=== PATIENT | male | born 1975 ===

== ENCOUNTER 2021-03-10 08:20 | Outpatient (CLI) | payer OTHER ==
--- NOTE | 2021-03-10 15:11 | XRAY Report ---
PROCEDURE: Elbow 3 View LT INDICATIONS: LEFT ELBOW PAIN TECHNIQUE: 3 views of the elbow were acquired. COMPARISON: None. FINDINGS: Bones: There is a nondisplaced fracture of the radial head. No dislocations. No suspicious bony les ions. Soft tissues: Small elbow joint effusion. No suspicious soft tissue calcifications. IMPRESSION: 1. Nondisplaced radial head fracture. Reviewed by: Sully Patterson MD on 03/10/2021 3:10 PM PST Approved by: Sully Patterson MD on 03/10/2021 3:10 PM PST Station ID: [id number]
== END 2021-03-10 08:21 | disposition home or self-care (01) ==
LOC: DI.WOS 08:20
PROVIDERS: ATTEND Orthopaedic Surgery
DX: S52.125A Nondisplaced fracture of head of left radius, initial encounter for closed fracture (principal)

== ENCOUNTER 2021-04-10 07:43 | Outpatient (CLI) | payer OTHER ==
--- NOTE | 2021-04-10 12:30 | XRAY Report ---
PROCEDURE: Elbow 3 View LT INDICATIONS: ELBOW FRACTURE TECHNIQUE: 3 views of the elbow were acquired. COMPARISON: March 10, 2021 FINDINGS: BONES/JOINT: Redemonstrated fracture deformity of the radial head, slightly more prominent compared t o the prior study. The remaining visualized osseous structures appear maintained. SOFT TISSUES: No focal abnormality. IMPRESSION: 1.Slightly widened fracture of the radial head. Reviewed by: Crescencio Green MD on 04/10/2021 12:29 PM [facility] Approved by: Crescencio Green MD on 04/10/2021 12:29 PM PST Station ID: [id number]
== END 2021-04-10 07:44 | disposition home or self-care (01) ==
LOC: DI.WOS 07:43
PROVIDERS: ATTEND Orthopaedic Surgery
DX: S52.122D Displaced fracture of head of left radius, subsequent encounter for closed fracture with routine healing (principal)